=== PATIENT | female | born 1935 | race Caucasian/White ===

== ENCOUNTER 2016-08-11 21:05 | Emergency (ER) | payer MEDICARE, OTHER ==
[2016-08-11 18:32] LABS: BASOPHILS 0.1 %; BASOPHILS ABSOLUTE 0.01 10/3/uL (0.0-0.16); EOSINOPHILS 0.7 %; EOSINOPHILS ABSOLUTE 0.07 10/3/uL (0.0-0.53); ER CBC TAT 0 Hrs 10 Mins; HEMATOCRIT 36.8 % (36.0-48.0); HEMOGLOBIN 13.3 g/dL (12.0-16.0); IMMATURE GRANULOCYTES 0.4 %; IMMATURE GRANULOCYTES ABSOLUTE 0.04 10/3/uL (0.0-0.11); LYMPHOCYTES 21.4 %; LYMPHOCYTES ABSOLUTE 2.24 10/3/uL (0.67-4.30); MEAN CORPUS HGB CONC 36.1 g/dL (32.0-36.0); MEAN CORPUSCULAR HEMOGLOB 31.4 pg (26.0-34.0); MEAN CORPUSCULAR VOLUME 86.8 fL (80-100); MEAN PLATELET VOLUME 9.9 fL (9.2-13.0); MONOCYTES 10.4 %; MONOCYTES ABSOLUTE 1.09 10/3/uL (0.21-1.20); NEUTROPHILS ABSOLUTE 7.03 10/3/uL (2.02-8.40); PLATELET COUNT 323 10/3/uL (150-400); RBC DISTRIBUTION WIDTH 12.3 % (12.0-16.0); RED CELL COUNT 4.24 10/6/uL (4.0-5.6); WHITE BLOOD CELLS 10.5 10/3/uL (4.5-10.5)
[2016-08-11 18:33] LABS: MANUAL DIFF NO %
[2016-08-11 18:44] LABS: INTERNATIONAL NORMAL RATI 1.1 UNITS (-); PARTIAL THROMBO TIME 39.7 SEC (22.5-37.2)
[2016-08-11 18:49] LABS: BUN (BLOOD UREA NITROGEN) 32 MG/DL (6-23); CALCIUM, SERUM 9.8 MG/DL (8.5-10.4); CHEST PAIN PROFILE TAT 0 Hrs 27 Mins; CHLORIDE, SERUM 89 MMOL/L (96-112); CO2 (CARBON DIOXIDE) 30 MMOL/L (24-34); CREATININE 2.07 MG/DL (0.55-1.02); GFR AFRICAN AMERICAN 25 ML/MIN (>=60); GFR NON AFRICAN AMERICAN 22 ML/MIN (>=60); GLUCOSE, SERUM 80 MG/DL (60-99); SODIUM, SERUM 126 MMOL/L (135-148); TROPONIN I <0.02 NG/ML (<0.05)
[~2016-08-11 21:05] MED LIST: ACET500CAP PO; ALLEGRA180 PO; ARCAPTA NEOHAL75 MCG INH; AYR NAS; BETAPACE80 PO; CADUET5 MG/40 MG PO; CEFT5 PO; CENTRUM TAB1 TAB PO; COREG12 PO; COREG6 PO; COZAAR100 MG PO; DIOVAN/HCT; DIOVAN320 MG PO; ELIQUIS 2.5 MG2.5 MG PO; FLONASE NAS; GLUCOTROL5 PO; GLUCXL5 PO; KLOR-CON M2020 MEQ PO; L20 PO; L40 PO; LEVAQUIN750 MG PO; LIPITOR40 PO; MULTIPLE VIT PO; MULTIVIT/MIN PO; MULTIVITAMI1 PO; NEUR100 PO; NORV5 PO; NXL3 PO; P20 PO; PLAVIX PO; PRADAXA150 MG PO; PRADAXA75 MG PO; PRILOSEC40 MG PO; PROAIR HFA INH; PROTONIX PO; SINGULAIR1 PO; SORINE80 MG PO; SPIRIVA INH; SPIRIVA RESPIMAT INH; STERAPRED5 MG; SYMBICORT 160/41 INH INH; SYSTANE OP; T PO; TAMBO50 PO; TAMBOCOR PO; VENTOLIN HFA INH; VITAMIN D31000 UNIT PO
== END 2016-08-11 21:27 | disposition home or self-care (01) ==
LOC: ER 21:05
PROVIDERS: Hospitalist
DX: E87.1 Hypo-osmolality and hyponatremia (principal); I13.0 Hypertensive heart and chronic kidney disease with heart failure and stage 1 through stage 4 chronic kidney disease, or unspecified chronic kidney disease; I50.9 Heart failure, unspecified; R94.31 Abnormal electrocardiogram [ECG] [EKG]; R06.00 Dyspnea, unspecified; I70.0 Atherosclerosis of aorta; I34.0 Nonrheumatic mitral (valve) insufficiency; I36.1 Nonrheumatic tricuspid (valve) insufficiency; N18.9 Chronic kidney disease, unspecified; E11.22 Type 2 diabetes mellitus with diabetic chronic kidney disease; G47.30 Sleep apnea, unspecified; Z88.0 Allergy status to penicillin; Z79.899 Other long term (current) drug therapy
CPT/HCPCS: 36415; 71020; 80048; 83735; 83880; 84484; 85025; 85027; 85610; 85730; 93005; 93306; 99285